=== PATIENT | male | born 1990 | race Caucasian/White ===

== ENCOUNTER 2018-03-30 20:07 | Emergency (ER) | payer OTHER ==
[~2018-03-30] VITALS: Ht 182.9 cm; Wt 81.8 kg
[2018-03-30] MEDS ORDERED: DiphenhydrAMINE HCL 50 MG/ML VIAL IM ONE (21:15)
[2018-03-30] MEDS ORDERED: ONDANSETRON HCL 4 MG/2 ML VIAL IM ONE (21:15)
[2018-03-30 21:45] LABS: AMPHET/METH SCREEN,URINE POSITIVE (NEGATIVE); BARBITURATE SCREEN, URINE NEGATIVE (NEGATIVE); BENZODIAZEPINES SCREEN,URINE NEGATIVE (NEGATIVE); CANNABINOID SCREEN,URINE POSITIVE (NEGATIVE); COCAINE SCREEN,URINE NEGATIVE (NEGATIVE); METHADONE SCREEN, URINE NEGATIVE (NEGATIVE); OPIATE SCREEN,URINE NEGATIVE (NEGATIVE)
[2018-03-30 21:46] LABS: PHENCYCLIDINE SCREEN,URINE NEGATIVE (NEGATIVE)
[2018-03-30 22:00] VITALS: BP 157/61
[2018-03-30] MEDS ORDERED: LORazepam 1 MG TABLET PO ONE (22:45)
== END 2018-03-30 23:01 | disposition home or self-care (01) ==
LOC: EMS 20:07
DX: F41.9 Anxiety disorder, unspecified (principal); F15.10 Other stimulant abuse, uncomplicated; R42 Dizziness and giddiness; R51 Headache; R11.10 Vomiting, unspecified; F17.210 Nicotine dependence, cigarettes, uncomplicated
CPT/HCPCS: 80307; 96372; 99284; 99406; J1200; J2405